=== PATIENT | female | born 1975 | race Caucasian/White ===

== ENCOUNTER 2023-05-19 13:13 | Outpatient (CLI) | payer OTHER, SELFPAY | END 2023-05-19 13:14 | disposition home or self-care (01) | PROVIDERS: PCP Physician Assistant Medical; Visit Provider Physician Assistant Medical | DX: Z00.00 Encounter for general adult medical examination without abnormal findings (principal); R53.83 Other fatigue; R35.0 Frequency of micturition; F90.9 Attention-deficit hyperactivity disorder, unspecified type | CPT/HCPCS: 80053; 80061; 80306; 82306; 82533; 82670; 83001; 84443 ==

== ENCOUNTER 2023-09-10 16:17 | Outpatient (CLI) | payer OTHER, SELFPAY | END 2023-09-10 16:18 | disposition home or self-care (01) | LOC: NFLDREF 09-12 07:12 | PROVIDERS: PCP Physician Assistant Medical; Referring Provider Physician Assistant Medical; Visit Provider Physician Assistant Medical | DX: E87.1 Hypo-osmolality and hyponatremia (principal); R74.01 Elevation of levels of liver transaminase levels | CPT/HCPCS: 80053; 86703; 86803 ==

== ENCOUNTER 2024-07-01 08:37 | Outpatient (CLI) | payer OTHER, SELFPAY | END 2024-07-01 08:38 | disposition home or self-care (01) | PROVIDERS: PCP Physician Assistant Medical; Visit Provider Physician Assistant Medical | DX: E78.1 Pure hyperglyceridemia (principal); Z13.29 Encounter for screening for other suspected endocrine disorder; Z13.21 Encounter for screening for nutritional disorder; Z13.220 Encounter for screening for lipoid disorders | CPT/HCPCS: 80053; 80061; 82306; 84443 ==

== ENCOUNTER 2025-08-29 13:45 | Outpatient (CLI) | payer OTHER, SELFPAY ==
[2025-08-29 23:33] LABS: Chlamydia DNA Amplified* NOT DETECTED (No Detected); GC DNA Amplified* NOT DETECTED (No Detected)
== END 2025-08-29 13:46 | disposition home or self-care (01) ==
PROVIDERS: PCP Physician Assistant Medical; Visit Provider Physician Assistant Medical
DX: Z00.00 Encounter for general adult medical examination without abnormal findings (principal); L65.9 Nonscarring hair loss, unspecified; R21 Rash and other nonspecific skin eruption
CPT/HCPCS: 82670; 84144; 84403; 86038; 86141; 86431; 86618; 86812; 87491; 87591